=== PATIENT | male | born 1940 | race Caucasian/White ===

== ENCOUNTER 2021-08-29 12:13 | Inpatient (IN) | payer OTHER ==
[~2021-08-29] VITALS: Ht 177.8 cm; Wt 103.4 kg
[2021-08-29 12:13] VITALS: BP_SYST 121
--- NOTE | 2021-08-29 12:15 | NUR ---
Placed in room 6 . Placed on health and safety tech, blood pressure machine and pulse oximeter. To gown for exam. Side rails up. Report given to ALPHONSE RODNEY.
--- NOTE | 2021-08-29 12:36 | NUR ---
PLACED PT ON MONITOR, B/P PULSE OX, 115/50 HEART RATE 112, RR 37, 97% ON 3 LITERS, COARSE CRACKLES, PT STATED HE WAS AN HOUR INTO DIALYSIS AND THE STOPPED THE DIALYSIS DUE TO SOB.
[2021-08-29] MEDS ORDERED: ALBUTEROL SULFATE 0.083% 2.5 MG/3 ML VIAL.NEB INH ONE ×2 (12:45→14:15)
[2021-08-29] MEDS ORDERED: IPRATROPIUM BROM 0.5 MG/2.5 ML VIAL.NEB (ATROVENT) INH ONE ×2 (12:45→14:45)
[2021-08-29] MEDS ORDERED: methylPREDNISolone SOD SUCC/PF 62.5 MG/ML VIAL IVP ONE ×2 (13:15→18:30)
[2021-08-29 13:41] LABS: BASOPHILS # (AUTO) 0.1 K/uL (0.0-0.2); BASOPHILS % (AUTO) 0.5 % (0.0-2.0); EOSINOPHILS # (AUTO) 0.1 K/uL (0.0-0.4); EOSINOPHILS % (AUTO) 0.9 % (0.0-4.0); HEMATOCRIT 29.6 % (36-54); HEMOGLOBIN 10.1 g/dL (14.0-18.0); LYMPHOCYTES # (AUTO) 2.5 K/uL (1.0-5.5); LYMPHOCYTES % (AUTO) 23.3 % (20.5-51.5); MEAN CORPUSCULAR HEMOGLOBIN 37 pg (27-31); MEAN CORPUSCULAR HGB CONC 34 % (32-36); MEAN CORPUSCULAR VOLUME 108 fL (79.0-98.0); MONOCYTES # (AUTO) 0.7 K/uL (0.0-1.0); MONOCYTES % (AUTO) 6.3 % (1.7-9.3); NEUTROPHILS # (AUTO) 7.3 K/uL (1.8-7.7); PLATELET COUNT (AUTO) 151 K/uL (130-430); RED BLOOD CELL COUNT(AUTO) 2.75 MIL/uL (4.2-6.2); WHITE BLOOD COUNT (AUTO) 10.6 K/uL (4.8-10.8)
[2021-08-29 13:54] LABS: ANION GAP 10 (5-15); CALCIUM 8.1 mg/dL (8.4-11.0); CHLORIDE 100 mmol/L (98-107); CREATININE 3.62 mg/dL (0.55-1.30); GLUCOSE 136 mg/dL (70-99); POTASSIUM 4.1 mmol/L (3.5-5.1); SODIUM SERUM 135 mmol/L (136-145); UREA NITROGEN, BLOOD 65 mg/dL (8-21)
[2021-08-29 14:02] LABS: ALANINE AMINOTRANSFERASE 13 U/L (12-78); ALBUMIN 2.6 g/dL (3.4-4.8); ASPARTATE AMINOTRANSFERASE 26 U/L (10-37); TOTAL BILIRUBIN 0.3 mg/dL (0.0-1.0)
--- NOTE | 2021-08-29 14:22 | NUR ---
PT PLACED ON BIPAP AT THIS TIME
[2021-08-29] MEDS ORDERED: AZITHROMYCIN 500 MG in NS 250 ML IV ONE ×2 (14:45→19:00)
[2021-08-29] MEDS ORDERED: cefTRIAXone 1 GM in D5W 50 ML IV ONE (14:45)
--- NOTE | 2021-08-29 14:59 | NUR ---
Admit bed requested Patient will be admitted to care of Admitted to TELE unit. Diagnosis Inpatient (Yes or No) Observation (Yes or No) Orientation concerns or request close to nursing station (Yes or No) Covid Status On vent or bipap Isolation requirements Needs a sitter From Home (Yes or if No enter name of facility) Requires Dialysis (Yes or No) Med Rec Completed (Yes of No)
[2021-08-29] MEDS ORDERED: cefTRIAXone 1 GM VIAL ONE (15:44)
[2021-08-29] MEDS ORDERED: AZITHROMYCIN 500 MG/VIAL (ZITHROMAX) IV ONE (15:45)
[2021-08-29] MEDS ORDERED: methylPREDNISolone SOD SUCC/PF 62.5 MG/ML VIAL ONE (15:47)
--- NOTE | 2021-08-29 15:58 | NUR ---
PT RESTING IN BED APPEARS TO BE IN NO ACUTE DISTRESS NOTED ATY THIS TIME, EDUCATED PT NOT TO REMOVE THE BIPAP, PT STATED IT IS UNCOMFORTABLE.
[2021-08-29] MEDS ORDERED: POTASSIUM CHLORIDE 20 MEQ TAB.PRT.SR PO PRN (16:30)
[2021-08-29] MEDS ORDERED: NALOXONE HCL 0.4 MG/ML AMP (NARCAN) IVP PRN ×2 (16:30)
[2021-08-29] MEDS ORDERED: MAGNESIUM SULFATE 50 ML IV PRN (16:30)
[2021-08-29] MEDS ORDERED: MORPHINE 2 MG/ML INJ. SYRINGE IVP PRN ×2 (16:30)
[2021-08-29] MEDS ORDERED: ZOLPIDEM TARTRATE 5 MG TABLET PO PRN (16:30)
[2021-08-29] MEDS ORDERED: DOCUSATE SODIUM 100 MG CAPSULE PO PRN (16:30)
[2021-08-29] MEDS ORDERED: ONDANSETRON HCL 4 MG/2 ML VIAL IVP PRN (16:30)
[2021-08-29] MEDS ORDERED: ACETAMINOPHEN 325 MG TABLET PO PRN (16:30)
[2021-08-29] MEDS ORDERED: MUPIROCIN 2% TOPICAL OINTMENT 22 GM NS PRN (16:30)
[2021-08-29] MEDS ORDERED: LORazepam 2 MG/ML VIAL IVP PRN (16:30)
--- NOTE | 2021-08-29 16:30 | NUR ---
Patient will be admitted to care of . Admitted to Telemetry unit. Will go to room 100A. Belongings list completed. Complete and up to date summary report printed. SBAR report to be given at bedside with opportunity for questions.
--- NOTE | 2021-08-29 16:40 | NUR ---
Admission Note Received patient from ER with diagnosis of Acute Respiratory Failure. Initial Plan of Care discussed-patient verbalized understanding.Hard of hearing on both ears. Oriented to room, call light, pain management and safety.Right upper chest perma catheter,dressing clean and dry. With visible wheezing noted.Breathing treatment just given in ER.On 6l/min.o2 saturation=93-96%.With left wrist iv saline lock.Condition guarded.
[2021-08-29 17:00] VITALS: BP_SYST 122
[2021-08-29] MEDS ORDERED: LevALBUTEROL HCL 1.25 MG/0.5 ML *CONC.* VIAL.NEB (XOPENEX CONC.) INH PRN (17:15)
[2021-08-29] MEDS ORDERED: LevALBUTEROL HCL 1.25 MG/0.5 ML *CONC.* VIAL.NEB (XOPENEX CONC.) INH ONE (17:15)
[2021-08-29] MEDS ORDERED: methylPREDNISolone SOD SUCC/PF 62.5 MG/ML VIAL IVP SCH (17:15)
[2021-08-29 17:54] VITALS: BP_SYST 121
[2021-08-29] MEDS ORDERED: VANCOMYCIN HCL 1,000 MG in NS 250 ML IV ONE (18:00)
--- NOTE | 2021-08-29 19:45 | NUR ---
EVENING ROUNDS: PATIENT HAVING DINNER,SLOWLY. IV VANCO GIVEN ORDERED.IV SOLUMEDROL GIVEN ORDERED BY ID. CALL LIGHT WITH IN REACH. BED LOCKED AT LOWEST POSITION. CONTINUE TO MONITOR.
[2021-08-29 20:00] VITALS: BP_SYST 128
[2021-08-29] MEDS ORDERED: cefTRIAXone 1 GM IVPB PREMIX 50 ML IV ONE (20:00)
--- NOTE | 2021-08-29 21:34 | NUR ---
Dialysis nurse HD nurse at bedside and setting up for dialysis.
--- NOTE | 2021-08-29 22:13 | NUR ---
HIGH ALERT NOTE: Called Dr. Almaguer, identified within the medical roster to verify physician authenticity regarding Heparin order for HD given by HD nurse.
[2021-08-29] MEDS ORDERED: HEPARIN SODIUM, PORCINE 10,000 UNITS/ 10 ML VIAL MC ONE (22:15)
--- NOTE | 2021-08-29 23:55 | NUR ---
HD complete late entry d/t patient care. Patient tolerated, VSS, no distress. HD nurse is requesting Heparin; which will be pulled from pyxis for her to administer. Will administer IV antibiotics which were unable to be administered while HD in process.
[2021-08-30] MEDS ORDERED: HEPARIN SODIUM,PORCINE 5,000 UNITS/ML VIAL SUBCUT ONE
[2021-08-30] MEDS: HEPARIN SODIUM,PORCINE 5,000 UNITS/ML VIAL SUBCUT SCH ×3 (00:33→21:00)
[2021-08-30 00:39] VITALS: BP_SYST 119
[2021-08-30] MEDS: methylPREDNISolone SOD SUCC/PF 62.5 MG/ML VIAL IVP SCH ×3 (06:34→21:02)
--- NOTE | 2021-08-30 07:30 | NUR ---
MORNING ROUNDS: RECEIVED PATIENT ON HIGH CONNELL'S AND HAVING BREAKFAST. RIGHT UPPER CHEST PERMA CATHETER,DRESSING CLEAN AND DRY. LEFT WRIST IV SALINE LOCK. NO VISIBLE WHEEZING NOTED.O2 3L/NC,GOOD SATURATION. CONTINUE TO MONITOR.
[2021-08-30 08:02] VITALS: BP_SYST 119
[2021-08-30 08:06] LABS: BASOPHILS % (AUTO) 0.2 % (0.0-2.0); HEMATOCRIT 31.4 % (36-54); HEMOGLOBIN 10.5 g/dL (14.0-18.0); LYMPHOCYTES # (AUTO) 1.3 K/uL (1.0-5.5); MEAN CORPUSCULAR HEMOGLOBIN 37 pg (27-31); MEAN CORPUSCULAR HGB CONC 34 % (32-36); MEAN CORPUSCULAR VOLUME 109 fL (79.0-98.0); MONOCYTES # (AUTO) 0.3 K/uL (0.0-1.0); MONOCYTES % (AUTO) 5.3 % (1.7-9.3); NEUTROPHILS # (AUTO) 4.4 K/uL (1.8-7.7); NEUTROPHILS % (AUTO) 72.5 % (40.0-70.0); PLATELET COUNT (AUTO) 162 K/uL (130-430); RED BLOOD CELL COUNT(AUTO) 2.88 MIL/uL (4.2-6.2); RED CELL DISTRIBUTION WIDTH 23.3 % (9.0-15.0)
[2021-08-30 08:08] LABS: ANION GAP 16 (5-15); CALCIUM 8.5 mg/dL (8.4-11.0); CHLORIDE 97 mmol/L (98-107); CREATININE 4.63 mg/dL (0.55-1.30); GLUCOSE 150 mg/dL (70-99); POTASSIUM 5.2 mmol/L (3.5-5.1); SODIUM SERUM 135 mmol/L (136-145); UREA NITROGEN, BLOOD 73 mg/dL (8-21)
[2021-08-30] MEDS: ASPIRIN 325 MG TABLET (ECOTRIN) PO SCH (08:24)
[2021-08-30 09:17] LABS: VANCOMYCIN,RANDOM < 0.8 ug/mL
[2021-08-30 11:19] VITALS: BP_SYST 115
[2021-08-30] MEDS: AZITHROMYCIN 500 MG in NS 250 ML IV SCH (12:14)
[2021-08-30] MEDS: cefTRIAXone 1 GM IVPB PREMIX 50 ML IV SCH (14:28)
[2021-08-30 15:33] VITALS: BP_SYST 92
--- NOTE | 2021-08-30 18:47 | NUR ---
EVENING ROUNDS: PATIENT A LITTLE BETTER.O2 4L/NC,GOOD SATURATION. IV SALINE LOCK. FOR HD TOMORROW ORDERED.CONTINUE TO MONITOR.SAFETY MEASURES RENDERED.
[2021-08-30 20:00] VITALS: BP_SYST 109
[2021-08-31 00:26] VITALS: BP_SYST 122
[2021-08-31 06:45] LABS: BASOPHILS % (AUTO) 0.3 % (0.0-2.0); HEMATOCRIT 30.7 % (36-54); HEMOGLOBIN 10.4 g/dL (14.0-18.0); LYMPHOCYTES % (AUTO) 13.6 % (20.5-51.5); MEAN CORPUSCULAR HEMOGLOBIN 37 pg (27-31); MEAN CORPUSCULAR HGB CONC 34 % (32-36); MEAN CORPUSCULAR VOLUME 110 fL (79.0-98.0); MONOCYTES # (AUTO) 0.3 K/uL (0.0-1.0); MONOCYTES % (AUTO) 4.1 % (1.7-9.3); NEUTROPHILS # (AUTO) 6.3 K/uL (1.8-7.7); PLATELET COUNT (AUTO) 217 K/uL (130-430); RED CELL DISTRIBUTION WIDTH 23.2 % (9.0-15.0)
[2021-08-31] MEDS: methylPREDNISolone SOD SUCC/PF 62.5 MG/ML VIAL IVP SCH ×3 (06:58→21:21)
[2021-08-31 07:24] LABS: WHITE BLOOD COUNT (AUTO) 7.6 K/uL (4.8-10.8)
[2021-08-31 08:31] VITALS: BP_SYST 120
[2021-08-31 08:43] LABS: SODIUM SERUM 137 mmol/L (136-145)
[2021-08-31 09:05] LABS: ANION GAP 22 (5-15); CHLORIDE 95 mmol/L (98-107); GLUCOSE 174 mg/dL (70-99); POTASSIUM 6.3 mmol/L (3.5-5.1)
[2021-08-31 09:06] LABS: ALANINE AMINOTRANSFERASE 39 U/L (12-78); ASPARTATE AMINOTRANSFERASE 30 U/L (10-37); CREATININE 6.49 mg/dL (0.55-1.30); TOTAL BILIRUBIN 0.2 mg/dL (0.0-1.0); UREA NITROGEN, BLOOD 100 mg/dL (8-21)
[2021-08-31 09:07] LABS: CHOLESTEROL 166 mg/dL (<200); HDL CHOLESTEROL 67 mg/dL (>45); LDL CHOLESTEROL 82 mg/dL (<100); TRIGLYCERIDES 68 mg/dL (30-150)
[2021-08-31 10:50] LABS: THYROID STIMULATING HORMONE 2.13 uIu/mL (0.34-4.82)
[2021-08-31 11:28] VITALS: BP_SYST 111
[2021-08-31] MEDS ORDERED: CALCIUM GLUCONATE 1 GM in NS 100 ML IV ONE (12:00)
[2021-08-31] MEDS: HEPARIN SODIUM,PORCINE 5,000 UNITS/ML VIAL SUBCUT SCH ×2 (12:01→21:20)
[2021-08-31] MEDS: AZITHROMYCIN 500 MG in NS 250 ML IV SCH (13:00)
--- NOTE | 2021-08-31 13:37 | NUR ---
Patient is currently receiving hemodialysis. Plan: attempt treatment tomorrow.
[2021-08-31] MEDS ORDERED: HEPARIN SODIUM,PORCINE 5,000 UNITS/ML VIAL MC ONE (15:00)
[2021-08-31 15:16] VITALS: BP_SYST 113
[2021-08-31] MEDS: cefTRIAXone 1 GM IVPB PREMIX 50 ML IV SCH (18:38)
[2021-08-31] MEDS: ASPIRIN 325 MG TABLET (ECOTRIN) PO SCH (19:01)
--- NOTE | 2021-08-31 19:15 | NUR ---
OPENING NOTE REPORT RECEIVED FROM DAYSHIFT NURSE. PATIENT RECEIVED LYING IN BED, AWAKE, NO S/S OF ACUTE DISTRESS. BREATHING IS EVEN AND UNLABORED. HOB RAISED, NASAL CANULA ATTACHED ON 4L OF OXYGEN. IV ANTIBIOTIC INFUSING WELL, IV SITE PATENT, NO SIGNS OF INFILTRATION OR INFECTION NOTED. SKIN WARM AND DRY TO TOUCH. CALL LIGHT WITH PATIENT. BED ALARM ON. BED IS LOCKED AND AT LOWEST POSITION. WILL CONTINUE TO MONITOR.
[2021-08-31 20:00] VITALS: BP_SYST 130
[2021-09-01 00:01] VITALS: BP_SYST 98
[2021-09-01] MEDS: methylPREDNISolone SOD SUCC/PF 62.5 MG/ML VIAL IVP SCH (05:13)
--- NOTE | 2021-09-01 06:20 | NUR ---
CLOSING NOTE PATIENT IN BED, RESTING, EYES CLOSED. NO S/S OF ACUTE DISTRESS NOTED. BREATHING EVEN AND UNLABORED. HOB RAISED, NASAL CANULA ATTACHED, ON 4L OF OXYGEN. IV SITE PATENT, NO SIGNS OF INFILTRATION OR INFECTION NOTED. ALL NEEDS MET THROUGHOUT SHIFT. FALL AND SAFETY PRECAUTIONS MAINTAINED THROUGHOUT SHIFT. WILL CONTINUE TO MONITOR UNTIL PATIENT CARE IS ENDORSED TO ONCOMING DAYSHIFT NURSE.
--- NOTE | 2021-09-01 06:23 | NUR ---
COMMERCIAL AIRLINE PILOT INFORMED WIRE PHOTO OPERATOR NEWS RATE SUSTAINING IN LOW 30'S. RN RAN TO ROOM, UPON EXAMINATION PATIENT DID NOT RESPOND TO VERBAL OR PHYSICAL STIMULI. HEART AND BREATH SOUNDS ABSENT. BILATERAL PERIPHERAL PULSES WERE ABSENT. DR. GUADALUPE AND PATIENT'S SON ([phone]) WERE INFORMED OF . CALLED [facility] AND PROCEEDED WITH POST MORTEM CARE. ENDORSED TO DAYSKSFT NURSE.
--- NOTE | 2021-09-01 06:24 | NUR ---
0624 CODE BLUE CALLED. CPR IN PROGRESS. 0631 ASSISTED INTUBATION BY MD WHATLEY. ETT 7.0/22CM AT LIP LINE. CO2 DETECTOR CHANGED COLOR YELLOW AND BILATERAL BREATH SOUNDS NOTICED. ETT SECURED WITH PAULINA ANCHOR FAST. BAGGED PATIENT VIA AMBU BAG. [id number] PATIENT .
[2021-09-01] MEDS ORDERED: SODIUM BICARBONATE 8.4% JECT 50 MEQ/50 ML SYRINGE ONE (07:00)
[2021-09-01] MEDS ORDERED: EPINEPHrine JECT 0.1 MG/ML SYR ONE (07:00)
[2021-09-01] MEDS ORDERED: CALCIUM CHLORIDE 1 GM/10 ML DISP.SYRIN (14 mEq Ca++/SYR) ONE (07:00)
--- NOTE | 2021-09-01 10:02 | NUR ---
post mortem care late entry due to pt care post mortem care done , per nurse alexis, son is aware of patient passing. no mortuary arrangement as of report. top and bottom dentures place back in patient's mouth. to body hold at 08:30.
--- NOTE | 2021-09-01 11:39 | NUR ---
DISPO CODE 20
--- NOTE | 2021-09-02 15:42 | NUR ---
Patient's son, Tavo, ,called and asked to orange picker the patient's personal belongings. the patient's belongings were secured from Security and left at the assistant front end manager for the son to orange picker.
== END 2021-09-01 06:51 ==
LOC: SED 12:13 → STU 14:53
PROVIDERS: ADMIT General Practice; ATTEND General Practice
PROC: 5A09357 Assistance with Respiratory Ventilation, Less than 24 Consecutive Hours, Continuous Positive Airway Pressure (ICD-10-PCS; 2021-08-29)
PROC: 5A1D70Z Performance of Urinary Filtration, Intermittent, Less than 6 Hours Per Day (ICD-10-PCS; 2021-08-30)
PROC: 5A1D70Z Performance of Urinary Filtration, Intermittent, Less than 6 Hours Per Day (ICD-10-PCS; 2021-08-31)
PROC: 5A12012 Performance of Cardiac Output, Single, Manual (ICD-10-PCS; principal; 2021-09-01)
DX: I13.2 Hypertensive heart and chronic kidney disease with heart failure and with stage 5 chronic kidney disease, or end stage renal disease (principal); J69.0 Pneumonitis due to inhalation of food and vomit; I21.A1 Myocardial infarction type 2; N17.0 Acute kidney failure with tubular necrosis; N18.6 End stage renal disease; J96.21 Acute and chronic respiratory failure with hypoxia; I50.43 Acute on chronic combined systolic (congestive) and diastolic (congestive) heart failure; E44.0 Moderate protein-calorie malnutrition; J44.1 Chronic obstructive pulmonary disease with (acute) exacerbation; J44.0 Chronic obstructive pulmonary disease with (acute) lower respiratory infection; Z66 Do not resuscitate; Z20.822 Contact with and (suspected) exposure to COVID-19; D63.8 Anemia in other chronic diseases classified elsewhere; I46.9 Cardiac arrest, cause unspecified; I45.10 Unspecified right bundle-branch block; Z99.2 Dependence on renal dialysis; Z87.891 Personal history of nicotine dependence; Z87.01 Personal history of pneumonia (recurrent); Z85.038 Personal history of other malignant neoplasm of large intestine; Z79.899 Other long term (current) drug therapy; Z68.32 Body mass index [BMI] 32.0-32.9, adult
CPT/HCPCS: 36415; 71045; 80048; 80053; 80061; 80202; 82962; 83036; 83605; 83735; 83880; 84443; 84484; 85025; 87040; 90935; 90937; 92950; 93005; 93306; 94640; 94660; 94760; 96374; 96375; 97163-GP; 99285; G0378; J0171; J0456; J0610; J0696; J1644; J2930; J3370; J7050; J7612; J7613